=== PATIENT | female | born 1980 | race Caucasian/White ===

== ENCOUNTER 2018-05-14 09:14 | Emergency (ER) | payer OTHER ==
[~2018-05-14] VITALS: Ht 182.9 cm; Wt 99.3 kg
--- OUTSIDE RECORDS SUMMARY | 2018-05-14 09:20 | XMS REPORT | Continuity of Care Document ---
Author Author [facility] Address Unknown Phone Unavailable Allergies There is no data. Medications There is no data. Problems Date Dx Coded Attending Type Code Diagnosis Diagnosed By 06/24/2008 PABLO CRONIN APRN V65.11 NEW MOMMY VISIT 12/04/2014 PABLO CRONIN APRN 724.2 LUMBAGO/ LOW BACK PAIN Procedures There is no data. Results There is no data. Encounters ACCT No. Visit Date/Time Discharge Status Pt. Type Provider Facility Loc./Unit Complaint [id number] 12/04/2014 15:38:00 12/04/2014 23:59:59 [facility] Outpatient PABLO CRONIN APRN [id number] 07/24/2013 15:56:00 07/24/2013 23:59:59 [facility] Outpatient
[2018-05-14 10:01] LABS: BASOPHILS % (AUTO) 1 % (0-10); EOSINOPHILS # (AUTO) 0.1 10^3/uL (0.0-0.3); EOSINOPHILS % (AUTO) 2 % (0-10); HEMATOCRIT 36 % (35-52); LYMPHOCYTES # (AUTO) 1.6 X 10^3 (1.0-4.0); LYMPHOCYTES % (AUTO) 28 % (12-44); MEAN CORPUSCULAR HEMOGLOBIN 30 PG (25-34); MEAN CORPUSCULAR HGB CONC 33 G/DL (32-36); MEAN CORPUSCULAR VOLUME 89 FL (80-99); MEAN PLATELET VOLUME 10.5 FL (7.4-10.4); MONOCYTES # (AUTO) 0.5 X 10^3 (0.0-1.0); MONOCYTES % (AUTO) 8 % (0-12); NEUTROPHILS # (AUTO) 3.7 X 10^3 (1.8-7.8); NEUTROPHILS % (AUTO) 62 % (42-75); PLATELET COUNT 287 10^3/uL (130-400); RED BLOOD COUNT 4.02 10^6/uL (4.35-5.85); WHITE BLOOD COUNT 5.9 10^3/uL (4.3-11.0)
[2018-05-14 10:24] LABS: ALANINE AMINOTRANSFERASE 13 U/L (0-55); ALBUMIN 4.1 GM/DL (3.2-4.5); ALKALINE PHOSPHATASE 53 U/L (40-136); BILIRUBIN,TOTAL 0.3 MG/DL (0.1-1.0); BUN/CREATININE RATIO 13; CALCIUM 9.5 MG/DL (8.5-10.1); CARBON DIOXIDE 24 MMOL/L (21-32); CHLORIDE 108 MMOL/L (98-107); CREATININE SERUM 0.71 MG/DL (0.60-1.30); GFR ESTIMATED > 60; GLUCOSE 98 MG/DL (70-105); POTASSIUM 4.1 MMOL/L (3.6-5.0); SALICYLATE < 5.0 MG/DL (5.0-20.0); SODIUM 140 MMOL/L (135-145); TOTAL PROTEIN 6.8 GM/DL (6.4-8.2)
[2018-05-14 10:25] LABS: ACETAMINOPHEN < 10 UG/ML (10-30)
[2018-05-14 10:34] LABS: BILIRUBIN,URINE NEGATIVE (NEGATIVE); CLARITY,URINE CLEAR; COLOR,URINE YELLOW; GLUCOSE, URINE (UA) NEGATIVE (NEGATIVE); KETONES,URINE NEGATIVE (NEGATIVE); LEUKOCYTE ESTERASE ,URINE 2+ (NEGATIVE); NITRITE,URINE NEGATIVE (NEGATIVE); PH,URINE 7 (5-9); PROTEIN,URINE NEGATIVE (NEGATIVE); UROBILINOGEN,URINE NORMAL (NORMAL)
--- NOTE | 2018-05-14 10:40 | ED Psychosocial ---
General Chief Complaint: Psych/Social Disorder Stated Complaint: PSYCH EVAL Nursing Triage Note: ARRIVED VIA AM IN POLICE CUSTODY WITH HANDCUFFS ON. HERE FOR A MEDICAL CLEARENCE FOR [place] PLACEMENT. Source: patient, police Exam Limitations: no limitations History of Present Illness Date Seen by Provider: May 14, 2018 Time Seen by Provider: 10:24 Initial Comments Patient presents to the ER by police custody from [facility] where she is residing for the past 3 months. [facility] reports that she is looking for placement and osteotomy and needs medical clearance. She says she has a little bit of nausea and did vomit once this morning. She's not sure she is because her last missed her period was 3 months ago but then a week ago she started to have 1 or 2 days of light bleeding. She's not had a test that she knows of. She does not take control. She is in a monogamous relationship. She denies any dysuria or discharge or abdominal pain. She's not having nausea presently. She does not want anything for it. She says she does want to have vitamins if she is . She also has some medications and Haldol injections that are prescribed to her. She's not having any shortness breath fevers chills cough. Allergies and Home Medications Allergies Coded Allergies: No Known Allergies (Verified Allergy, Unknown, 01/30/06) Home Medications Unable to Obtain Active Prescriptions or Reported Meds Patient Home Medication List Home Medication List Reviewed: Yes Review of Systems Constitutional: No chills, No fever EENTM: No ear pain, No eye pain Respiratory: No cough, No phlegm Cardiovascular: No chest pain, No edema Gastrointestinal: No abdominal pain, No constipation, No nausea, No vomiting Genitourinary: No discharge, No dysuria Musculoskeletal: No back pain, No joint pain Past Auezhks-Zjcfam-Vcvrfu Hx Patient Social History Alcohol Use: Denies Use Recreational Drug Use: No Smoking Status: Never a Smoker Recent Foreign Travel: No Contact w/Someone Who Travel: No Recent Infectious Disease Expo: No Recent Hopitalizations: No Seasonal Allergies Seasonal Allergies: No Past Medical History Surgeries: Yes (BACK) Respiratory: No Cardiac: No Neurological: No Genitourinary: No Gastrointestinal: No Musculoskeletal: No Endocrine: No HEENT: No Cancer: No Psychosocial: Yes (PT DENIES BUT 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 oz. 99.425739ix; BMI Method:Stated General Appearance: WD/WN, no apparent distress HEENT: PERRL/EOMI, pharynx normal Respiratory: no respiratory distress, no accessory muscle use Cardiovascular: normal peripheral pulses, no edema Gastrointestinal: normal bowel sounds, soft Extremities: normal range of motion, normal capillary refill Neurologic/Psychiatric: alert, normal mood/affect, oriented x 3 Appearance/Memory: no memory impairment, denies illness, impaired insight Behavior/Eye Contact: cooperative, good eye contact, normal speech Thoughts/Hallucinations: normal thought pattern, no apparent hallucination Skin: normal color, warm/dry Progress/Results/Core Measures Results/Orders Lab Results Laboratory Tests Test 05/14/18 09:54 05/14/18 10:26 Range/Units White Blood Count 5.9 4.3-11.0 10^3/uL Red Blood Count 4.02 L 4.35-5.85 10^6/uL Hemoglobin 12.0 11.5-16.0 G/DL Hematocrit 36 35-52 % Mean Corpuscular Volume 89 80-99 FL Mean Corpuscular Hemoglobin 30 25-34 PG Mean Corpuscular Hemoglobin Concent 33 32-36 G/DL Red Cell Distribution Width 14.0 10.0-14.5 % Platelet Count 287 130-400 10^3/uL Mean Platelet Volume 10.5 H 7.4-10.4 FL Neutrophils (%) (Auto) 62 42-75 % Lymphocytes (%) (Auto) 28 12-44 % Monocytes (%) (Auto) 8 0-12 % Eosinophils (%) (Auto) 2 0-10 % Basophils (%) (Auto) 1 0-10 % Neutrophils # (Auto) 3.7 1.8-7.8 X 10^3 Lymphocytes # (Auto) 1.6 1.0-4.0 X 10^3 Monocytes # (Auto) 0.5 0.0-1.0 X 10^3 Eosinophils # (Auto) 0.1 0.0-0.3 10^3/uL Basophils # (Auto) 0.0 0.0-0.1 10^3/uL Sodium Level 140 135-145 MMOL/L Potassium Level 4.1 3.6-5.0 MMOL/L Chloride Level 108 H 98-107 MMOL/L Carbon Dioxide Level 24 21-32 MMOL/L Anion Gap 8 5-14 MMOL/L Blood Urea Nitrogen 9 7-18 MG/DL Creatinine 0.71 0.60-1.30 MG/DL Estimat Glomerular Filtration Rate > 60 BUN/Creatinine Ratio 13 Glucose Level 98 70-105 MG/DL Calcium Level 9.5 8.5-10.1 MG/DL Corrected Calcium 9.4 8.5-10.1 MG/DL Total Bilirubin 0.3 0.1-1.0 MG/DL Aspartate Amino Transf (AST/SGOT) 12 5-34 U/L Alanine Aminotransferase (ALT/SGPT) 13 0-55 U/L Alkaline Phosphatase 53 40-136 U/L Total Protein 6.8 6.4-8.2 GM/DL Albumin 4.1 3.2-4.5 GM/DL Salicylates Level < 5.0 L 5.0-20.0 MG/DL Acetaminophen Level < 10 L 10-30 UG/ML Serum Alcohol < 10 <10 MG/DL Urine Color YELLOW Urine Clarity CLEAR Urine pH 7 5-9 Urine Specific [place] 1.010 L 1.016-1.022 Urine Protein NEGATIVE NEGATIVE Urine Glucose (UA) NEGATIVE NEGATIVE Urine Ketones NEGATIVE NEGATIVE Urine Nitrite NEGATIVE NEGATIVE Urine Bilirubin NEGATIVE NEGATIVE Urine Urobilinogen NORMAL NORMAL MG/DL Urine Leukocyte Esterase 2+ H NEGATIVE Urine RBC (Auto) NEGATIVE NEGATIVE Urine RBC NONE /HPF Urine WBC 10-25 H /HPF Urine Squamous Epithelial Cells 25-50 H /HPF Urine Crystals NONE /LPF Urine Bacteria FEW H /HPF Urine Casts NONE /LPF Urine Mucus NEGATIVE /LPF Urine Culture Indicated YES Urine Test NEGATIVE NEGATIVE Urine Opiates Screen NEGATIVE NEGATIVE Urine Oxycodone Screen NEGATIVE NEGATIVE Urine Methadone Screen NEGATIVE NEGATIVE Urine Propoxyphene Screen NEGATIVE NEGATIVE Urine Barbiturates Screen NEGATIVE NEGATIVE Ur Tricyclic Antidepressants Screen NEGATIVE NEGATIVE Urine Phencyclidine Screen NEGATIVE NEGATIVE Urine Amphetamines Screen NEGATIVE NEGATIVE Urine Methamphetamines Screen NEGATIVE NEGATIVE Urine Benzodiazepines Screen NEGATIVE NEGATIVE Urine Cocaine Screen NEGATIVE NEGATIVE Urine Cannabinoids Screen NEGATIVE NEGATIVE My Orders Orders - SHY FERNÁNDEZ Ua Culture If Indicated (05/14/18 09:21) Cbc With Automated Diff (05/14/18:21) Comprehensive Metabolic Panel (05/14/18:) Alcohol (05/14/18:) Drug Screen Stat (Urine) (05/14/18:21) Acetaminophen (05/14/18:) Salicylate (05/14/18:21) Hcg,Qualitative Urine (05/14/18:) Monitor-Rhythm Ecg Trace Only (05/14/18:21) Bh Status Checks/Observation Q15M (05/14/18 09:21) Ekg Tracing (05/14/18 10:06) Urine Culture (05/14/18 10:26) Vital Signs/I&O 05/14/18 09:35 Temp 98.0 Pulse 80 Resp 16 B/P (MAP) 116/74 (88) Pulse Ox 100 O2 Delivery Room Air Blood Pressure Mean: 88 Progress Progress Note #1: Time: 10:40 Progress Note Offered her Zofran and she's declining. Were going to check urine and labs and hCG. If she is medically cleared and she can return to custodial. Progress Note #2: Time: 11:43 Progress Note Urinalysis is likely contamination but will be as cover her with some Macrobid until we see the culture results since his can be difficult to follow her up. From a medical standpoint she is cleared for inpatient psychiatric management. Initial ECG Impression Date: May 14, 2018 Initial ECG Impression Time: 09:44 Initial ECG Rate: 58 Initial ECG Rhythm: Normal Sinus Initial ECG Intervals: Normal Initial ECG Impression: Normal Comment No ST elevation or depression. Departure Impression Primary Impression: Psychiatric disorder Additional Impression: UTI (urinary tract infection) Qualified Codes: N30.00 - Acute cystitis without hematuria Disposition: 01 HOME, SELF-CARE Condition: Stable Departure-Patient Inst. Decision time for Depature: 11:42 Referrals: GAUDENCIO BANERJEE DO (PCP) Primary Care Physician Patient Instructions: Acute Cystitis (DC) Add. Discharge Instructions: Drink plenty of water and take the Macrobid one tablet twice a day for the next 7 days. All discharge instructions reviewed with patient and/or family. Voiced understanding. Scripts Nitrofurantoin Monohyd/M-Cryst (Macrobid 100 mg Capsule) 100 Mg Capsule 1 TAB PO BID for 7 Days, #14 CAP 0 Refills Prov: SHY FERNÁNDEZ 05/14/18 SHY FERNÁNDEZ May 14, 2018 10:40
[2018-05-14 10:47] LABS: BACTERIA,URINE FEW /HPF; SQUAMOUS EPITHELIAL CELL,UR 25-50 /HPF
[2018-05-14 10:50] LABS: AMPHETAMINE SCREEN, URINE NEGATIVE (NEGATIVE); BARBITURATE SCREEN URINE NEGATIVE (NEGATIVE); BENZODIAZEPINES SCREEN URINE NEGATIVE (NEGATIVE); CANNABINOID SCREEN, URINE NEGATIVE (NEGATIVE); COCAINE SCREEN URINE NEGATIVE (NEGATIVE); HCG,QUALITATIVE URINE NEGATIVE (NEGATIVE); METHADONE STAT NEGATIVE (NEGATIVE); METHAMPHETAMINE SCREEN URINE S NEGATIVE (NEGATIVE); OPIATE SCREEN URINE NEGATIVE (NEGATIVE); OXYCODONE STAT NEGATIVE (NEGATIVE); PROPOXYPHENE STAT NEGATIVE (NEGATIVE); TRICYCLIC ANTIDEPRESSANTS SCRE NEGATIVE (NEGATIVE)
[2018-05-14] MEDS ORDERED: NITR-65 PO (11:43)
[2018-05-14 11:55] VITALS: BP 136/84
== END 2018-05-14 11:55 | disposition home or self-care (01) ==
LOC: EDUNIT# 09:14 → ER 09:15
DX: F99 Mental disorder, not otherwise specified (principal); N39.0 Urinary tract infection, site not specified; Z98.890 Other specified postprocedural states
CPT/HCPCS: 36415; 80053; 80306; 80320; 80329; 81000; 84703; 85025; 87088; 93005

== ENCOUNTER 2019-02-27 01:41 | Emergency (ER) | payer OTHER ==
[~2019-02-27] VITALS: Ht 175.3 cm; Wt 99.8 kg
[~2019-02-27 01:41] MED LIST: NITR-65 PO
--- OUTSIDE RECORDS SUMMARY | 2019-02-27 01:54 | XMS REPORT ---
Author Author CLAYTON SEBASTIAN [facility] Address Unknown Care Team Providers Care Tile Sprayer Name Role Phone CLAYTON SEBASTIAN Unavailable PROBLEMS Unknown Problems ALLERGIES No Known Allergies ENCOUNTERS Encounter Location Date Diagnosis [facility] [address] [facility] [id number] [place], [place] [id number] Oct, Dental examination Z01.20 IMMUNIZATIONS No Known Immunizations SOCIAL HISTORY Never Assessed REASON FOR VISIT PLAN OF CARE Activity Details Follow Up ERICKA Reason:45 MIN EXTRACTION #4 AND 5 VITAL SIGNS Blood pressure systolic 144 mmHg 2017-10-23 Blood pressure diastolic 92 mmHg 2017-10-23 MEDICATIONS No Known Medications RESULTS No Results PROCEDURES Procedure Date Ordered Result Body Site LTD ORAL EVALUATION - PROBLEM FOCUS Oct 23, 2017 INTRAORL-PERIAPICAL 1 FILM 14219 Oct 23, 2017 INSTRUCTIONS MEDICATIONS ADMINISTERED No Known Medications
[2019-02-27] MEDS ORDERED: HYDROcodone/APAP 5 MG/325 MG (LORTAB) TAB PO ONE (03:15)
--- NOTE | 2019-02-27 04:29 | ED General ---
General Chief Complaint: Upper Extremity Stated Complaint: RT SHOULDER PAIN,PT STS POSS PREG,NOT HAD PERIOD Source of Information: Patient Exam Limitations: No Limitations History of Present Illness Date Seen by Provider: Feb 27, 2019 Time Seen by Provider: 03:05 Initial Comments This 38-year-old woman presents to the emergency room with complaints of pain in the right forearm and the right shoulder. She states injury occurred over one week ago when she was apprehended by police officers and her arm was restrained behind her back. She states a prior rotator cuff injury to this shoulder that was aggravated. She has been trying ibuprofen and ice but pain has still worsened despite that. She reports it is possible she is . Her primary care providers Dr. Tracy. Allergies and Home Medications Allergies Coded Allergies: NKANo Known Allergies (Verified Allergy, Unknown, 01/30/06) Home Medications Nitrofurantoin Monohyd/M-Cryst 100 Mg Capsule, 1 TAB PO BID Prescribed by: SHY FERNÁNDEZ on 05/14/18 6514 Patient Home Medication List Home Medication List Reviewed: Yes Review of Systems Review of Systems Constitutional: no symptoms reported EENTM: no symptoms reported Respiratory: no symptoms reported Cardiovascular: no symptoms reported Gastrointestinal: no symptoms reported Genitourinary: no symptoms reported Musculoskeletal: see HPI Skin: no symptoms reported Psychiatric/Neurological: No Symptoms Reported Hematologic/Lymphatic: No Symptoms Reported Immunological/Allergic: no symptoms reported Past Ulexejo-Unuomf-Hqzgqx Hx Past Med/Social Hx: Reviewed and Corrections made Patient Social History Recent Foreign Travel: No Contact w/Someone Who Travel: No Recent Hopitalizations: No Seasonal Allergies Seasonal Allergies: No Past Medical History Surgeries: Yes (BACK) Respiratory: No Cardiac: No Neurological: No Genitourinary: No Gastrointestinal: No Musculoskeletal: Yes (right rotator cuff injury) Arthritis Endocrine: No HEENT: No Cancer: No Psychosocial: Yes (PT DENIES BUT 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 oz. 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 X-rays were obtained but no acute bony injuries were identified. Diagnostic Imaging Diagonstic Imaging: Xray Plain Films/CT/US/NM/MRI: forearm Comments Forearm x-ray viewed by me. Report not yet available. No acute injuries were identified. Diagonstic Imaging: Xray Plain Films/CT/US/NM/MRI: other (right shoulder) Comments Right shoulder x-ray was viewed by me. Report not yet available. No acute abnormalities appreciated. Departure Impression Primary Impression: Right forearm pain Additional Impression: Right shoulder pain Qualified Codes: M25.511 - Pain in right shoulder Disposition: 01 HOME, SELF-CARE Condition: Stable Departure-Patient Inst. Decision time for Depature: 04:27 Referrals: NO,LOCAL PHYSICIAN (PCP/Family) Primary Care Physician Patient Instructions: Shoulder Pain (DC) Add. Discharge Instructions: You may use ibuprofen up to 600 mg every 6 hours as needed and/or Tylenol (acetaminophen) up to 1000 mg every 6 hours as needed for pain. You may apply ice in 20 minute intervals to help with pain as well. If you are not improving over the next couple of days, please schedule an appointment with a primary care provider for further evaluation. All discharge instructions reviewed with patient and/or family. Voiced understanding. GUSTAVO COBB MD Feb 27, 2019 04:29
[2019-02-27 04:34] VITALS: BP 97/55
--- NOTE | 2019-02-27 07:42 | Diagnostic Imaging Report ---
INDICATION: Injury with pain FINDINGS: The clavicle and AC joints unremarkable. The glenohumeral alignment anatomic and the visualized adjacent ribs and pleura unremarkable. No radiopaque loose body. No fracture or erosion or acute finding. IMPRESSION: Unremarkable three-view right shoulder. Dictated by: Dictated on workstation # [id number]
--- NOTE | 2019-02-27 07:44 | Diagnostic Imaging Report ---
INDICATION: Pain FINDINGS: No fracture, dislocation or acute articular incongruity. No dislocation of the wrist or elbow joints. No pathologically displaced fat pads. No cortical buckling. The articular surfaces are smooth. IMPRESSION: No acute appearing abnormality. Dictated by: Dictated on workstation # [id number]
== END 2019-02-27 04:40 | disposition home or self-care (01) ==
LOC: EDUNIT# 01:41 → ER 01:49
DX: M25.511 Pain in right shoulder (principal); M79.631 Pain in right forearm; Z87.39 Personal history of other diseases of the musculoskeletal system and connective tissue; Y35.891A Legal intervention involving other specified means, law enforcement official injured, initial encounter
CPT/HCPCS: 73030; 73090

== ENCOUNTER → 2022-01-09 | Outpatient (CLI) | payer MEDICARE | LOC: CARD 12:42 | PROVIDERS: ATTEND Pediatrics | DX: E66.01 Morbid (severe) obesity due to excess calories (principal) | CPT/HCPCS: 93306 ==

== ENCOUNTER → 2022-05-03 | Outpatient (CLI) | payer MEDICARE ==
[~2022-05-03] VITALS: Ht 175 cm; Wt 140.0 kg
[~2022-05-03] MED LIST changes: +REGADENOSON 0.4 MG/5 ML SYR (LEXISCAN) IV ONE
[2022-05-03] MEDS: CATHETER FLUSH 10 ML SYR IVP PRN ×2 (12:05→13:28)
[2022-05-03 13:24] VITALS: BP 127/89
--- NOTE | 2022-05-03 17:18 | Cardiology Stress Test Report ---
Stress Test Report Date of Procedure/Referring: Date of Procedure: May 03, 2022 PCP No,Local Physician Admitting Physician Admitting Physician: Attending Physician: Vazquez Woodward DO Indications: CP Baseline Heart Rate: 78 Baseline Blood Pressure: Blood Pressure Systolic: 127 Blood Pressure Diastolic: 89 Baseline Vitals Vital Signs Date Time Temp Pulse Resp B/P (MAP) Pulse Ox O2 Delivery O2 Flow Rate FiO2 05/03/22 13:24 80 16 127/89 (102) 98 Room Air Baseline EKG: Baseline EKG: NSR Summary After explaining the procedure to the patient, she signed a consent and then brought to the stress nuclear laboratory. Patient received 0.4 mg Lexiscan for stress test, ECG, heart rate and blood pressure were monitored continuously. Resting and stress dose of radio tracer were injected, imaging was acquired and reviewed in short axis, horizontal long axis and vertical long axis views. TID: 1 SSS: 17 SDS: 10 EF: 56 1. Patient tolerated Lexiscan well 2. Breast attenuation affecting the quality of the images, reversible ischemia involving the anterior wall anterolateral wall and anterior apex 3. Normal left ventricular size, ejection fraction 56% Copy Copies To 1: VAZQUEZ WOODWARD BASHAR J MD May 03, 2022 17:18
== END ==
LOC: CARD 11:30
PROVIDERS: ATTEND Pediatrics
DX: R07.89 Other chest pain (principal)
CPT/HCPCS: 78452; 93017; A9502

== ENCOUNTER 2022-05-10 10:38 | Day surgery (SDC) | payer MEDICARE ==
[2022-05-10] VITALS (10 sets, daily range): BP systolic 98–140; BP diastolic 53–77
[~2022-05-10] VITALS: Ht 175.3 cm; Wt 151.6 kg
[~2022-05-10 10:38] MED LIST changes: -REGADENOSON 0.4 MG/5 ML SYR (LEXISCAN) IV ONE
[2022-05-10] MEDS ORDERED: NS IV 1000 ML 1,000 ML ONE (10:51)
[2022-05-10] MEDS ORDERED: HEParin (CATH LAB) 1,000 ML IV ONE (10:51)
[2022-05-10] MEDS ORDERED: LIDOCAINE 1% INJ 20 ML VIAL ONE ×2 (10:51→13:50)
[2022-05-10] MEDS ORDERED: NS IV 1000 ML 1,000 ML IV SCH ×2 (11:00)
--- NOTE | 2022-05-10 11:20 | Diagnostic Imaging Report ---
Indication: Chest pain Portable chest 11:17 AM Heart and mediastinum are normal. Lungs are clear. There are no effusions or pneumothoraces. IMPRESSION: No acute abnormalities in the chest Dictated by: Dictated on workstation # [id number]
[2022-05-10 11:21] LABS: HEMATOCRIT 38 % (35-52); HEMOGLOBIN 12.2 g/dL (11.5-16.0); MEAN CORPUSCULAR HEMOGLOBIN 28 pg (25-34); MEAN CORPUSCULAR HGB CONC 32 g/dL (32-36); MEAN CORPUSCULAR VOLUME 87 fL (80-99); MEAN PLATELET VOLUME 10.7 fL (9.0-12.2); PLATELET COUNT 307 10^3/uL (130-400); WHITE BLOOD COUNT 9.5 10^3/uL (4.3-11.0)
[2022-05-10 11:26] LABS: BILIRUBIN,URINE NEGATIVE (NEGATIVE); CLARITY,URINE CLEAR; COLOR,URINE YELLOW; GLUCOSE, URINE (UA) NEGATIVE (NEGATIVE); KETONES,URINE NEGATIVE (NEGATIVE); LEUKOCYTE ESTERASE ,URINE 1+ (NEGATIVE); NITRITE,URINE NEGATIVE (NEGATIVE); PH,URINE 5.5 (5-9); PROTEIN,URINE NEGATIVE (NEGATIVE)
[2022-05-10 11:34] LABS: HCG,QUALITATIVE URINE NEGATIVE (NEGATIVE)
[2022-05-10 11:38] LABS: BACTERIA,URINE MODERATE /HPF; RBC,URINE 0-2 /HPF
[2022-05-10 11:46] LABS: ALBUMIN 3.8 GM/DL (3.2-4.5); BILIRUBIN,TOTAL 0.4 MG/DL (0.1-1.0); CALCIUM 9.1 MG/DL (8.5-10.1); CREATININE SERUM 0.79 MG/DL (0.60-1.30); POTASSIUM 4.1 MMOL/L (3.6-5.0); TOTAL PROTEIN 7.4 GM/DL (6.4-8.2)
[2022-05-10] MEDS ORDERED: DULA3PEN SQ (11:51)
[2022-05-10] MEDS ORDERED: OMEP20CA18 PO (11:51)
[2022-05-10] MEDS ORDERED: NICO-587 TD (11:51)
[2022-05-10] MEDS ORDERED: PREG75CA75 PO (11:51)
[2022-05-10] MEDS ORDERED: IBUP-1780 PO (11:51)
[2022-05-10 11:56] LABS: PROTHROMBIN TIME PATIENT 13.3 SEC (12.2-14.7)
--- NOTE | 2022-05-10 13:10 | Cardiac Procedure Note-CS/ASA ---
Pre-Procedure Note Pre-Op Procedure Note Date of Available H&P: May 04, 2022 Date H&P Reviewed: May 10, 2022 Time H&P Reviewed: 13:09 History & Physical: H&P Reviewed, Patient Examed, No changes noted Pre-Operative Diagnosis: CAD Conscious Sedation Pre-Proced Time 13:10 ASA Score 3 For ASA 3 and 4: Consider anesthesia and medical clearance. Also, for patients with a history of failed moderate sedation consider anesthesia. Airway Lungs Heart ASA score ASA 1: a normal healthy patient ASA 2: a patient with a mild systemic disease (mid diabetes, controlled hypertension, obesity x ASA 3: a patient with a severe systemic disease that limits activity (angina, COPD, prior Myocardial infarction) ASA 4: a patient with an incapacitating disease that is a constant threat to life (CHF, renal failure) ASA 5: a moribund patient not expected to survive 24 hrs. (ruptured aneurysm) ASA 6: a declared brain- patient whose organs are being harvested. For emergent operations, add the letter E after the classification Mallampati Classification Grade 3 Sedation Plan Analgesia, Amnesia, Plan communicated to team members, Discussed options with patient/fam, Discussed risks with patient/fam The patient is an appropriate candidate to undergo the planned procedure, sedation, and anesthesia. The patient immediately re-assessed prior to indication. BRITTANIE SPENCER MD May 10, 2022 13:10
[2022-05-10] MEDS ORDERED: fentaNYL INJ 100 MCG/2 ML AMP ONE ×2 (13:13→13:43)
[2022-05-10] MEDS ORDERED: VERAPAMIL 5 MG/2 ML (CALAN) VIAL IV ONE (13:13)
[2022-05-10] MEDS ORDERED: MIDAZOLAM 2 MG/2 ML (VERSED) VIAL ONE ×3 (13:13→13:43)
[2022-05-10] MEDS ORDERED: NITRO DRIP 25000 MCG/D5W 250 ML IV ONE (13:14)
[2022-05-10] MEDS ORDERED: HEParin 1000 UNIT/ML (10ML VIAL) FOR BOLUS ONE (13:14)
[2022-05-10] MEDS ORDERED: ONDANSETRON 4 MG/2 ML (SDV) Z0FRAN ONE ×2 (13:28→13:56)
--- NOTE | 2022-05-10 14:10 | Discharge Inst-Post CATH ---
Discharge Inst-CATH/EP Problems Reviewed?: Yes Post Cardiac Cath/EP D/C Inst Follow Up/Plan Appointment with Dr. Edge's office in 2 to 4 weeks <b>CARDIAC CATH/EP PROCEDURE DISCHARGE INSTRUCTIONS</b> ACTIVITY * Go Home directly and rest. * Limit activity of the leg (or wrist if it was used) for 7 days including aer obics, swimming, jogging, bicycling, etc. * Restrict stair-climbing for 7 days if possible, if not, climb up with your non-cath leg, then bring together on the same step. * Avoid lifting, pushing, pulling or excessive movement of the affected extremi ty for 7 days. * Customary sexual activity may be resumed after 2 days-use caution not to use a position that strains or causes pain to the affected extremity. * No driving for 24 hours. * NO SMOKING. * Avoid straining for bowel movements for 7 days. * Gentle walking on level ground is allowed. * Returning to work will depend on the type of procedure and the results. Your doctor will discuss this with you. CALL YOUR DOCTOR FOR ANY OF THE FOLLOWING: *If bleeding from the puncture site occurs- Apply gentle pressure to site with clean cloth and call your doctor or EMS. * If a knot or lump forms under the skin, increases in size, or causes pain. * If bruising appears to be worsening or moving further down your leg instead of disappearing. * Temperature above 101 F. CARE OF YOUR GROIN INCISION; * Bruising or purple discoloration of the skin near the puncture site is common. * You may shower only, no bathtub bathing for 5 days. Be careful to avoid slipping as your leg may feel stiff. * If a closure device was used on your femoral artery, please see the attached guide regarding care of the device and your leg. * Leave dressing on FOR 24 hours. CARE OF YOUR WRIST INCISION; * Bruising or purple discoloration of the skin near the puncture site is common. * You may shower. * DO NOT submerge wrist. * Leave dressing on FOR 24 hours. BRITTANIE EDGE MD May 10, 2022 14:10
[2022-05-10] MEDS ORDERED: PATIENT MAY USE OWN MEDS, ALL PO SCH (14:15)
--- NOTE | 2022-05-10 14:18 | Cardiac Cath Report ---
Cardiac Cath Report Physician (s)/Manager Float (s) Physician BRITTANIE SPENCER MD Pre-Procedure Diagnosis Pre-Procedure Diagnosis: CAD Post-Procedure Note Procedure Start Date: May 10, 2022 Name of Procedure: Left heart catheterization Aortic root angiogram Aortic arch angiogram Findings/Procedure Note PROCEDURE NOTE: 41-year-old lady with recurrent chest pain, had an abnormal stress test, scheduled for cardiac catheterization possible PTCA. After explaining the procedure to the patient, all pros and cons were explained, all questions were answered. The patient signed the consent and then she was placed on the cardiac catheterization laboratory. Groin was prepped SL fashion local anesthesia was used. Sheath placed in the right radial artery, I had difficulty advancing the catheter to the ascending aorta, it appeared that the origin of the brachiocephalic branch is lower in the descending aorta. After multiple maneuver I was able to advance the catheter and the wire but it took an S shape, I advanced the catheter to the left ventricular cavity pressure was measured, pullback LV to aorta was measured I was unable to maneuver the catheter by any means. I exchanged the catheter into the Rafi right catheter and still with a Rafi right catheter I was unable to maneuver the catheter or turn it. Patient was having significant pain in her arm I decided to remove the catheter and went with the groin access. 6 Cuban sheath was placed in the right femoral artery. Rafi right and left catheter were used to access the coronary system. Pigtail was advanced to the aortic root and aortic root angiogram was done then I pulled back to the aortic arch and did aortic arch angiogram. At the end of the procedure the sheath was removed. Vascular band was used to the radial artery and closure device deployed in the femoral artery FINDINGS: Hemodynamics LV 118/21, end-diastolic pressure of 21 Aorta 123/83 mean of 101 ANATOMY: Left Main is free of obstructive disease Left Anterior Descending has mild disease nonobstructive disease Left Circumflex has mild disease nonobstructive disease Right Coronary Artery is dominant artery with slow flow due to small vessel disease LV Gram was not done, pressure was measured Aorta evaluation done with aortic root angiogram and aortic arch angiogram Aortic root angiogram showed normal aortic root, no dissection or aneurysm, normal aortic valve. Aortic arch angiogram showed normal aortic arch, the origin of the brachiocephalic artery left subclavian and left carotid artery did not appear to be significantly abnormal although the imaging through the catheter from the radial artery showed significantly lower origin. I recommend evaluating CT angiogram of the thoracic aorta CONCLUSION: 1. Mild coronary artery disease nonobstructive disease with slow flow in the LAD 2. Normal left ventricular end-diastolic pressure 3. Normal aortic root and aortic arch. There is questionable abnormal origin or anomalous origin of the brachiocephalic artery from the descending aorta. Recommend evaluating CT angiogram of the thoracic aorta. DISCUSSION AND RECOMMENDATION: Continue with medical therapy Anesthesia Type: Conscious Sedation Estimated blood loss (mL): 35 ml Contrast Amount: 80 ml Total Radiation Dose: 1045 mGy Post-Procedure Diagnosis Post-operative diagnosis: Chest pain Coronary artery disease Hypertension Hyperlipidemia BRITTANIE SPENCER MD May 10, 2022 14:18
[2022-05-10] MEDS: NS IV 1000 ML 1,000 ML IV SCH (15:27)
== END 2022-05-10 18:40 ==
LOC: CATH 10:38 → SDC 14:35 → CATH 18:40
PROVIDERS: ATTEND Internal Medicine Cardiovascular Disease
DX: I25.10 Atherosclerotic heart disease of native coronary artery without angina pectoris (principal); I10 Essential (primary) hypertension; E78.5 Hyperlipidemia, unspecified; F17.210 Nicotine dependence, cigarettes, uncomplicated; E11.9 Type 2 diabetes mellitus without complications; Z79.899 Other long term (current) drug therapy
CPT/HCPCS: 36140; 36221; 36415; 71045; 80053; 80061; 81000; 84703; 85027; 85610; 85730; 87081; 87088; 93005; 93458; 93567

== ENCOUNTER → 2022-06-20 | Outpatient (CLI) | payer MEDICARE ==
[~2022-06-20] MED LIST changes: +CATHETER FLUSH 10 ML SYR IV PRN; +DULA3PEN SQ; +HOLD METFORMIN - RECEIVED CONTRAST 20 ML VIAL IV SCH; +IBUP-1780 PO; +IOHEXOL 350 MG/ML 100 ML (OMNIPAQUE 350) VIAL IV ONE; +NICO-587 TD; +NS 100 ML (IVPB) BAG IV ONE; +OMEP20CA18 PO; +PREG75CA75 PO
--- NOTE | 2022-06-20 12:52 | Diagnostic Imaging Report ---
PROCEDURE: CT angiography of the chest with contrast. TECHNIQUE: Multiple contiguous axial images were obtained through the chest after uneventful bolus administration of intravenous contrast. 3D reconstructed CTA MIP acquisitions were also performed. Auto Exposure Controls were utilized during the CT exam to meet ALARA standards for radiation dose reduction. INDICATION: Chest pain. No prior studies are available for comparison. 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 There is a common origin of the right common carotid. The aorta is normal caliber. There is no dissection. Pulmonary arterial system is without evidence of thromboembolism. No filling defects are seen within central, lobar segmental branches. There is no pericardial or pleural fluid identified. No pulmonary infiltrates, nodules or masses are detected. Upper abdomen shows a probable stone in the gallbladder. IMPRESSION: 1. No evidence of pulmonary embolism or acute aortic disease. Note is made of an aberrant right subclavian artery. 2. Cholelithiasis. Dictated by: Dictated on workstation # [id number]
== END ==
LOC: RAD 09:03
PROVIDERS: ATTEND Physician Assistant
DX: Q25.40 Congenital malformation of aorta unspecified (principal); K80.20 Calculus of gallbladder without cholecystitis without obstruction
CPT/HCPCS: 71275

== ENCOUNTER 2023-04-30 08:19 | Emergency (ER) | payer MEDICARE ==
[~2023-04-30 08:19] MED LIST changes: -CATHETER FLUSH 10 ML SYR IV PRN; -HOLD METFORMIN - RECEIVED CONTRAST 20 ML VIAL IV SCH; -IOHEXOL 350 MG/ML 100 ML (OMNIPAQUE 350) VIAL IV ONE; -NS 100 ML (IVPB) BAG IV ONE
[2023-04-30 08:20] VITALS: BP 158/94
[2023-04-30] MEDS ORDERED: NS IV 1000 ML 1,000 ML IV STA (08:44)
--- NOTE | 2023-04-30 08:51 | ED General ---
General Chief Complaint: General Problems/Pain Stated Complaint: DIZZINESS Nursing Triage Note: PT ARRIVED PER EMS. PT CO OF DIZZINESS, TENDER BREASTS, POSS PREG, STATES POSSIBLEY DEHYDRATED. PT HAVING HARDTIME STAYING ON TASK WHEN QUESTIONS ASKED KEEPS GETTING OFF TASK. PT HAS CONFUSION. KEEPS TALKING ABOUT STATES PERIOD 2 WEEKS AGO. STATES SAD SOMETIMES. DENIES PAIN. PT STATES HAS BEEN OUT OF MEDS BUT STATES TOOK PO MEDS WHEN ENROUTE W EMS W\\O WATER. Source of Information: Patient Exam Limitations: No Limitations History of Present Illness Date Seen by Provider: Apr 30, 2023 Time Seen by Provider: 08:35 Initial Comments Here by EMS with multiple vague complaints including dizziness and feeling like she may be pre. EMS reports normal vital signs in the field and that they did not find any significant abnormalities with normal blood sugar and normal blood pressure. Patient states that she has had some cough recently and is concerned about COVID. She states that she has breast tenderness and is concerned about and her last menstrual period was about 2 and half weeks ago. She reports that she did walk yesterday and feels like maybe she overdid it and maybe got dehydrated. Denies fever or chills currently but does admit to intermittent dizziness which she states that she gets sometimes. She follows with [facility]. Timing/Duration: 1 Hour, Changing Over Time, Intermittent Severity: Mild Associated Systoms: No Cough, No Fever/Chills, No Rash, No Shortness of Air; Weakness Allergies and Home Medications Allergies Coded Allergies: NKANo Known Allergies (Verified Allergy, Unknown, 01/30/06) Patient Home Medication List Home Medication List Reviewed: Yes Dulaglutide (Trulicity) 3 Mg/0.5 Ml Pen.injctr, 3 MG SQ WEEK, (Reported) Entered as Reported by: NIDA CHAPMAN on 05/10/22 115 Ibuprofen (Ibuprofen) 800 Mg Tablet, 800 MG PO Q8H PRN for PAIN-MILD, (Reported) Entered as Reported by: NIDA CHAPMAN on 05/10/22 115 Nicotine (Nicotine Patch) 14 Mg/24 Hour Patch.td24, 14 MG TD DAILY, (Reported) Entered as Reported by: NIDA CHAPMAN on 05/10/22 115 Omeprazole (Omeprazole) 20 Mg Capsule.dr, 20 MG PO DAILY, (Reported) Entered as Reported by: NIDA CHAPMAN on 05/10/22 1151 Pregabalin (Pregabalin) 75 Mg Capsule, 75 MG PO BID, (Reported) Entered as Reported by: NIDA CHAPMAN on 05/10/22 1151 Review of Systems Review of Systems Constitutional: see HPI; No chills; dizziness; No fever EENTM: No nose congestion, No throat pain Respiratory: cough; No short of breath Cardiovascular: No chest pain, No edema Gastrointestinal: No nausea, No vomiting Musculoskeletal: back pain (Chronic) Skin: no symptoms reported Psychiatric/Neurological: Anxiety Past [id number]-Lyyopm Hx Patient Social History Tobacco Use?: Yes Tobacco type used: Cigarettes Smoking Status: Current Everyday Smoker Substance use?: No Alcohol Use?: Yes Alcohol Frequency: Rarely Pt feels they are or have been: No Immunizations Up To Date Tetanus Booster (TDap): Unknown PED Vaccines UTD: Yes First/Initial COVID19 Vaccinat: YES Seasonal Allergies Seasonal Allergies: No Past Medical History Surgery/Hospitalization HX: TAKES LYRICA. 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 oz. 99.027685ok; BMI Method:Stated General Appearance: No Apparent Distress, WD/WN, Obese HEENT: PERRL/EOMI, Pharynx Normal Neck: Non Tender, Supple Respiratory: Lungs Clear, Normal Breath Sounds Cardiovascular: Regular Rate, Rhythm, No Murmur Gastrointestinal: Non Tender, Soft Extremity: Normal Range of Motion, Non Tender Neurologic/Psychiatric: Alert, Oriented x3 Skin: Normal Color, Warm/Dry Progress/Results/Core Measures Suspected Sepsis SIRS Temperature: Pulse: 75 Respiratory Rate: 18 Laboratory Tests 04/30/23 08:49: White Blood Count 8.9 Blood Pressure 158 /94 Mean: 115 Laboratory Tests 04/30/23 08:49: Platelet Count 291 Results/Orders Lab Results Laboratory Tests Test 04/30/23 08:47 04/30/23 08:49 Range/Units White Blood Count 8.9 4.3-11.0 10^3/uL Red Blood Count 4.07 3.80-5.11 10^6/uL Hemoglobin 11.3 L 11.5-16.0 g/dL Hematocrit 35 35-52 % Mean Corpuscular Volume 87 80-99 fL Mean Corpuscular Hemoglobin 28 25-34 pg Mean Corpuscular Hemoglobin Concent 32 32-36 g/dL Red Cell Distribution Width 16.0 H 10.0-14.5 % Platelet Count 291 130-400 10^3/uL Mean Platelet Volume 11.2 9.0-12.2 fL Immature Granulocyte % (Auto) 1 % Neutrophils (%) (Auto) 73 42-75 % Lymphocytes (%) (Auto) 17 12-44 % Monocytes (%) (Auto) 8 0-12 % Eosinophils (%) (Auto) 1 0-10 % Basophils (%) (Auto) 1 0-10 % Neutrophils # (Auto) 6.4 1.8-7.8 10^3/uL Lymphocytes # (Auto) 1.5 1.0-4.0 10^3/uL Monocytes # (Auto) 0.7 0.0-1.0 10^3/uL Eosinophils # (Auto) 0.1 0.0-0.3 10^3/uL Basophils # (Auto) 0.1 0.0-0.1 10^3/uL Immature Granulocyte # (Auto) 0.0 0.0-0.1 10^3/uL My Orders Orders - JOIE YAN MD Cbc With Automated Diff (04/30/23 08:44) Comprehensive Metabolic Panel (04/30/23 08:44) Hs C Reactive Protein (04/30/23 08:44) Ua Culture If Indicated (04/30/23 08:44) Ns Iv 1000 Ml (Ns Iv 1000 Ml) (04/30/23 08:44) Ed Iv/Invasive Line Start (04/30/23 08:44) Covid 19 Inhouse Test (04/30/23 08:44) Influenza A And B By Pcr (04/30/23 08:44) Urine Bedside (04/30/23 08:44) Vital Signs/I&O 04/30/23 08:20 Pulse 75 Resp 18 B/P (MAP) 158/94 (115) Pulse Ox 97 Capillary Refill : Less Than 3 Seconds Blood Pressure Mean: 115 Progress Note : Progress Note Seen and evaluated. IV, labs including CBC, CMP, CRP, UA and bedside UCG ordered. We will check COVID. Normal saline 1 L bolus. Monitor patient. Differential diagnosis includes COVID infection, electrolyte abnormality, dehydration, 0902: Patient got up and removed her IV and walked out of the ER while I was in seeing another patient. She did not sign paperwork. Patient just left AMA. CBC reviewed and is grossly normal Departure Impression Primary Impression: Dizziness Disposition: 07 AGAINST MEDICAL ADVICE Condition: Unchanged Departure-Patient Inst. Decision time for Depature: 09:01 Referrals: NO,LOCAL PHYSICIAN (PCP/Family) Primary Care Physician Patient Instructions: Dizziness, Adult ED Add. Discharge Instructions: All discharge instructions reviewed with patient and/or family. Voiced understanding. Left JOIE GONZALEZ MD Apr 30, 2023 08:51
[2023-04-30 08:54] LABS: BASOPHILS # (AUTO) 0.1 10^3/uL (0.0-0.1); BASOPHILS % (AUTO) 1 % (0-10); EOSINOPHILS # (AUTO) 0.1 10^3/uL (0.0-0.3); EOSINOPHILS % (AUTO) 1 % (0-10); HEMATOCRIT 35 % (35-52); HEMOGLOBIN 11.3 g/dL (11.5-16.0); LYMPHOCYTES # (AUTO) 1.5 10^3/uL (1.0-4.0); LYMPHOCYTES % (AUTO) 17 % (12-44); MEAN CORPUSCULAR HEMOGLOBIN 28 pg (25-34); MEAN CORPUSCULAR HGB CONC 32 g/dL (32-36); MEAN CORPUSCULAR VOLUME 87 fL (80-99); MEAN PLATELET VOLUME 11.2 fL (9.0-12.2); MONOCYTES # (AUTO) 0.7 10^3/uL (0.0-1.0); MONOCYTES % (AUTO) 8 % (0-12); NEUTROPHILS # (AUTO) 6.4 10^3/uL (1.8-7.8); NEUTROPHILS % (AUTO) 73 % (42-75); PLATELET COUNT 291 10^3/uL (130-400); WHITE BLOOD COUNT 8.9 10^3/uL (4.3-11.0)
[2023-04-30 09:07] LABS: ALBUMIN 4.1 GM/DL (3.2-4.5); POTASSIUM 3.6 MMOL/L (3.6-5.0)
[2023-04-30 09:08] LABS: CALCIUM 8.9 MG/DL (8.5-10.1)
[2023-04-30 09:10] LABS: TOTAL PROTEIN 7.2 GM/DL (6.4-8.2)
[2023-04-30 09:11] LABS: BILIRUBIN,TOTAL 0.4 MG/DL (0.1-1.0)
[2023-04-30 09:13] LABS: CREATININE SERUM 0.77 MG/DL (0.60-1.30)
== END 2023-04-30 08:57 | disposition left against medical advice (07) ==
LOC: EDUNIT# 08:19 → ER 08:21
DX: R42 Dizziness and giddiness (principal); E66.9 Obesity, unspecified; F17.210 Nicotine dependence, cigarettes, uncomplicated; Z20.822 Contact with and (suspected) exposure to COVID-19
CPT/HCPCS: 36415; 80053; 85025; 86141; 87636